=== PATIENT | male | born 1960 | race Caucasian/White ===

== ENCOUNTER → 2017-12-05 | Outpatient (CLI) | payer MEDICARE, OTHER ==
[2017-02-08 12:13] VITALS: BMI 22.4
[~2017-12-05] MED LIST: AMOX-362 PO; ARGI500C9 PO; ASPI-757 PO; CEP500 PO; DIA5 PO; DILT120C PO; FLUT16SP19 NS; HYDR2TAB74 PO; IBUP200C71 PO; KET10 PO; LORA-629 PO; METH-542 PO; OXYC20TA86 PO; PER PO; TRAM-420 PO; TRAM100T2 PO
[2017-12-05 09:50] LABS: PLATELET COUNT, AUTOMATED 181 K/uL (150-450)
== END ==
LOC: LAB 09:30
PROVIDERS: ATTEND Emergency Medicine
DX: Z12.5 Encounter for screening for malignant neoplasm of prostate (principal); I49.9 Cardiac arrhythmia, unspecified
CPT/HCPCS: 36415; 85025; G0103; 82040; 82247; 82310; 82374; 82435; 82565; 82947; 84075; 84132; 84153; 84155; 84295; 84450; 84460; 84520

== ENCOUNTER → 2018-01-14 | Outpatient (CLI) | payer OTHER ==
[2017-02-08 12:13] VITALS: BMI 22.4
[~2018-01-14] MED LIST changes: +GOLYTE PO; +MELO-205 PO
--- NOTE | 2018-01-14 17:58 | RADIOLOGY IMAGING REPORT ---
FACILITY: [facility] PATIENT NAME: Angel Frausto : 1960 MR: [id number] V: [id number] EXAM DATE: ORDERING PHYSICIAN: [facility] TECHNOLOGIST: Location: [facility] Patient: Angel Frausto : 1960 Visit/Account:[id number] Date of Sevice: 01/14/2018 MRI right shoulder Indication: Nontraumatic rotator cuff tear. Comparison: MRI right shoulder from 09/29/2013. Technique: Multiplanar multisequence MR images were obtained through the right shoulder. Findings: Rotator cuff: There are suture anchors seen within the superior posterior superior humeral head which likely relate s to prior rotator cuff repair. This overall appears similar dating back to prior MRI right shoulder from 09/29/2013. Attenuated appearance of the supraspinatus and infraspinous appears worsened from the prior exam with findings concerning for moderate to high-grade bursal surface tearing of distal supraspinatus fibers on images 8 and 9 of the sagittal series as well as on images 11 and 12 the coronal series. No defin ite full-thickness tear seen. Biceps tendon: Biceps within the bicipital groove is overall intact with longitudinal split tearing of the fibers wi thin the superior bicipital groove suggested. The intra-articular portion of the biceps tendon is not clearly identified on this exam concerning for interval complete tear and/or interval biceps tenotom y. Correlate clinically. AC joint and acromion: There are interval postop changes likely from interval acromioplasty the AC joint with significant wi dening of the acromioclavicular interval now measuring 1.5 cm. A moderate amount of fluid is seen wit hin the AC joint. Labrum and capsular ligaments: Change irregular nondisplaced tearing of the superior labrum extends from the biceps labral anchor to the posterior superior labrum. There is no para labral cyst formation or labral detachment identifie d. Capsular ligaments are intact with no evidence of focal abnormality. Bones and cartilage: No acute or aggressive osseous abnormality. Persistent increased signal surrounding the suture anchor s likely artifactual nature overall not significantly changed. No full-thickness chondral defect. Minimal chondral thinning suggested throughout the glenohumeral maxwell int cartilage. Effusion, bursitis: There is a small likely reactive effusion of the glenohumeral joint. Moderate amount of fluid seen within the subacromial/subdeltoid bursa. IMPRESSION: 1. Worsened attenuated appearance of the supraspinatus and infraspinatus as above with findings also suggestive of progressive bursal surface tearing without definite full-thickness tear on this exam or significant fatty atrophy of the supraspinatus and infraspinatus. 2. Irregular degenerative tearing superior labrum again noted. 3. Interval acromioplasty suggested with fluid within the AC joint as well as moderate subacromial/ireland bdeltoid bursitis. Report Dictated By: Lamin Gutiérrez MD at 01/14/2018 5:46 PM Report E-Signed By: Lamin Gutiérrez MD at 01/14/2018 5:54 PM WSN:[id number]
== END ==
LOC: MRI 13:35
PROVIDERS: ATTEND Student in an Organized Health Care Education/Training Program
DX: M75.101 Unspecified rotator cuff tear or rupture of right shoulder, not specified as traumatic (principal)

== ENCOUNTER 2018-03-18 00:34 | Day surgery (SDC) | payer MEDICARE, OTHER ==
[2017-02-08 12:13] VITALS: Ht 175.3 cm; Wt 70.3 kg
[~2018-03-18] VITALS: Ht 175.3 cm; Wt 70.3 kg
[~2018-03-18 00:34] MED LIST changes: +GABA-490 PO; +IBUP-136 PO; -IBUP200C71 PO; +IBUP200C74 PO; +METH-278 PO
[2018-03-18 06:58] VITALS: BP 131/78
[2018-03-18] MEDS ORDERED: PROPOFOL EMUL(*) 10MG/ML 20 ML 20 ML ONE (07:19)
[2018-03-18] MEDS ORDERED: NORMOSOL R SOLN(*) 1000 ML BAG 1,000 ML IV PRN (07:30)
[2018-03-18] MEDS ORDERED: LIDOCAINE/SOD BICARB 8.4% SYR ID ONE (07:30)
[2018-03-18 08:57] VITALS: BP 114/76
--- NOTE | 2018-03-18 09:12 | Short(Outpt) Discharge Summary ---
Discharge Summary Reason for Hosp/Final Diag: (1) Colon cancer screening Status: Chronic Hospital Course & Plan: Colonoscopy with polypectomy x1 completed without problems. Departure Discharge to: Home, Self Care Discharge Instructions Home Meds Active Scripts Peg/Electrolytes (GOLYTELY SOLUTION) 4,000 Ml Soln, 1 GAL PO ONCE, #1 GAL 0 Refills Prov:ASHANTI FUENTES MD 01/12/18 Meloxicam (MELOXICAM) 7.5 Mg Tablet, 1-2 TAB PO QDAY, #60 TAB Prov:LING HERNANDEZ MD 12/15/17 Reported Medications Methocarbamol (METHOCARBAMOL) 500 Mg Tablet, 500 MG PO PRN Y for PAIN 03/12/18 Gabapentin (NEURONTIN) 300 Mg Capsule, 300 MG PO PRN Y for PAIN, CAPSULE 03/12/18 Tramadol Hcl (TRAMADOL HCL) 50 Mg Tablet, 50-100 MG PO Q4-6H for PAIN, TAB 03/12/18 Ibuprofen (ADVIL) 200 Mg Capsule, 1-2 CAP PO Q6-8H for PAIN, CAPSULE 03/12/18 Follow up Referrals: General Surgery - 04/06/18 @ Surgery, General with Ashanti Fuentes Md You have a follow up appointment scheduled with Dr. Fuentes on 04/06/18, at 11:00am. Diet: Regular Activity: As Tolerated Special Instructions: Your colonoscopy was completed without problems and your prep was excellent (Good Job!!). I removed a small polyp from your colon but there wasn't any cancer or other problems. Start the bowel regimen and follow this closely every day and I'll see you back in my office and we'll discuss the pathology results and we'll see how your bowel symptoms are on the bowel regimen. ASHANTI FUENTES MD Mar 18, 2018 09:12
[2018-03-18 09:19] VITALS: BP 111/68
[2018-03-18 09:36] VITALS: BP_SYST 112; BP_SYST 119; BP_DIAS 72; BP_DIAS 74
== END 2018-03-18 09:55 | disposition home or self-care (01) ==
LOC: OR 00:34
PROVIDERS: ATTEND Surgery
DX: Z12.11 Encounter for screening for malignant neoplasm of colon (principal); D12.5 Benign neoplasm of sigmoid colon; K57.30 Diverticulosis of large intestine without perforation or abscess without bleeding
CPT/HCPCS: 00811; 45385; 88305; J2704